=== PATIENT | female | born 1955 | race Hispanic/Latino ===

== ENCOUNTER 2018-07-22 14:24 | Emergency (ER) | payer SELFPAY ==
--- NOTE | 2018-07-22 15:19 | RAD ---
2 VIEWS RIGHT FOREARM: Date: 07/22/18 HISTORY: Dog bite. FINDINGS: AP and lateral views of right forearm obtained. Soft tissue injury is seen along the medial aspect of the right forearm. No evidence of osseous lesions seen. No evidence of fractures or bony abnormalities seen. IMPRESSION: No evidence of acute right forearm bony abnormality seen. POS: [facility]
[2018-07-22] MEDS ORDERED: Adacel (T-DAP) 0.5 ML SYRINGE ONE (15:26)
[2018-07-22] MEDS ORDERED: HYDROcodone/Acetaminophen 10/325 mg Tablet ONE (15:39)
== END 2018-07-22 16:38 | disposition home or self-care (01) ==
LOC: ERS 14:24
DX: S51.851A Open bite of right forearm, initial encounter (principal); I10 Essential (primary) hypertension; M19.90 Unspecified osteoarthritis, unspecified site; Z79.891 Long term (current) use of opiate analgesic; Z79.899 Other long term (current) drug therapy; W54.0XXA Bitten by dog, initial encounter
CPT/HCPCS: 90471; 90715